=== PATIENT | female | born 1950 | race Caucasian/White ===

== ENCOUNTER 2016-11-19 00:58 | Inpatient (IN) | payer OTHER, MEDICARE ==
[~2016-11-19] VITALS: Ht 162.6 cm; Wt 91.9 kg
[2016-11-19] VITALS (8 sets, daily range): BP systolic 157–200; BP diastolic 44–90
--- NOTE | ~2016-11-19 | CON ---
[place], [place] REPORT OF CONSULTATION NAME: JUAN LUIS [facility] #: [id number] UNIT #: [id number] ROOM: 502 DOCTOR: MAXINE AMEZQUITA MD BIRTHDATE: [birth year] DOS: REASON FOR CONSULTATION: Chest pain. HISTORY OF PRESENT ILLNESS: The patient is a 66-year-old woman who previously followed with the [facility] for heart disease. She stated that she had chest pain in 2011, catheterization led to the placement of 2 stents "in the back of the heart." The patient was on aspirin and Plavix for a while, but after her Plavix was discontinued. 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 She states that for the last several weeks, she has had brief episodes of chest tightness which were reminiscent of what she had when she had her angioplasty in 2012. These have been fairly brief. Last evening while sitting resting and watching television she did develop a dull substernal tightness in her chest, which radiated to her left arm and neck. She stated that it lasted at least an hour or two. She became concerned and called emergency medical services, but by the time they arrived, her symptoms had resolved. She was brought to the Emergency Room where her electrocardiogram showed no acute changes. Serial cardiac biomarkers have been normal. Her blood pressure has been elevated. Since she has been in the hospital, she has had no further symptoms and is anxious to be discharged. PAST MEDICAL HISTORY: Includes, 1. Coronary artery disease, status post catheterization with placement of 2 stents in 2011. This was done at the [facility] and records are not currently available. 2. Essential hypertension. 3. Type 2 diabetes mellitus. 4. Former cigarette abuse. The patient quit over 10 years ago. 5. History of tubal ligation. FAMILY HISTORY: The patient's mother of complications of heart failure at age 72. Her father had a history of heart disease, his first heart attack occurred when he was in his 40s and he at age 68. A sister has heart failure. MEDICATIONS: Prior to admission included aspirin 81 mg daily, carvedilol 12.5 mg twice a day, vitamin D 1000 units daily, clonidine 0.1 mg b.i.d., hydrochlorothiazide 25 mg b.i.d., levothyroxine 75 mcg daily, metformin 1000 mg b.i.d. and PreserVision one tablet b.i.d. In addition, the patient tells me now that she was on lisinopril 20 mg daily at home, but forgot to tell the ER staff about that. ALLERGIES: She has no known drug allergies. REVIEW OF SYSTEMS: The patient denies diplopia or loss of vision. She denies focal weakness. She denies lightheadedness or syncope. She denies orthopnea or PND. She denies fevers, chills, sweats or recent weight change. She denies nausea or vomiting. She did not have any associated nausea, diaphoresis or dyspnea with her symptoms. She denies lightheadedness or syncope. She denies [place], [place] REPORT OF CONSULTATION NAME: [facility] UNIT #: [id number] ROOM: [facility] DOCTOR: MAXINE AMEZQUITA MD BIRTHDATE: [birth year] hemoptysis or hematemesis. She denies any significant cough. She denies change in her bowel or bladder habits and denies blood in her urine or stools. She denies any skin rashes. She denies any swelling in her legs. She denies claudications. She denies heat or cold intolerance and denies polydipsia or polyuria. The remainder of the review of systems is negative except as noted above. SOCIAL HISTORY: The patient is . She was a smoker, but quit over 10 years ago. She does not consume significant amounts of alcohol. PHYSICAL EXAMINATION: GENERAL: The patient is an overweight white female who is awake, alert and oriented. VITAL SIGNS: Pulse is 58 and regular, blood pressure is 187/72. She is afebrile. She weighs 91.9 kg and has a body mass index of 34.8. HEENT: Normocephalic, atraumatic. Extraocular muscles are intact. Sclerae are clear. Pupils are equal, round and react to light. The oral mucosa is moist. Tongue is midline. NECK: Supple. She has no jugular distention. Carotids are full. I heard no bruits. She had no neck or supraclavicular masses and no thyromegaly. LUNGS: Respirations are unlabored. Her chest is clear to auscultation and percussion. She has no presacral edema or chest wall tenderness. HEART: Has a regular rhythm. She has a fourth heart sound, but no third heart sound or murmur. The PMI is not displaced. She has no precordial heave, lift or thrill. ABDOMEN: Soft and normally active without masses, organomegaly or bruits. EXTREMITIES: Showed no edema. Peripheral pulses are palpable in the feet bilaterally. LABORATORY DATA: I reviewed her electrocardiogram and it does show sinus rhythm. It is a normal tracing. Cardiac biomarkers have been normal as well. Hemoglobin is 10.7, hematocrit 33.3. There are 7900 white cells and 266,000 platelets present. Sodium is 137, potassium 3.5, BUN 10, creatinine 0.67. Sugar is 102. Hemoglobin A1c is 6.9. Troponin has been negative x 3. IMPRESSION: 1. Atypical chest pain. The patient shows no signs of an acute myocardial infarction and no objective evidence for an acute coronary syndrome. 2. Hypertension. 3. Type 2 diabetes mellitus. 4. History of coronary artery disease status post 2 stents placed in 2011. 5. Hypothyroidism, on replacement. PLAN: The patient's medical regimen is somewhat unusual. She is not sure what dose of MANDA inhibitor she is on, but it was not listed with her usual medications. Typically, patients do not take hydrochlorothiazide twice a day and I would prefer to emphasize beta blockers and MANDA inhibitors rather than clonidine. I did ask the patient to find out what medications she is on and their dosages so they can be adjusted appropriately. My goal would be to push her to a maximum dose of MANDA inhibitor and stop her clonidine over time. I [place], [place] REPORT OF CONSULTATION NAME: [facility]AN [facility]IS [facility] UNIT #: [id number] ROOM: 502 DOCTOR: MAXINE AMEZQUITA MD BIRTHDATE: [birth year] think that she is already on her maximally tolerated dose of beta chata since her heart rate at rest is fairly slow. I did convince her that she should be back on a statin. She states that she did not tolerate atorvastatin in the past, but she has tolerated pravastatin. I think that in the very near future, the patient should undergo an exercise myocardial perfusion study. The patient would like to have that arranged as an outpatient and probably will speak to her primary physician, Dr. Resendiz to have it arranged at the [facility]. If she stays in the hospital we will arrange for her to have a stress test this coming Monday. Otherwise, she can be discharged from our perspective and we will remain available to see her as needed. I thank the hospitalist physicians for asking our advice regarding the patient's care. MAXINE AMEZQUITA MD CM:CONSTR:REPORT OF CONSULTATION 1458 11/19/16 2309 interface
[~2016-11-19 00:58] MED LIST: ANTIVERT25 MG PO; ASPIR-TRIN325 MG PO; CARVEDILOL12.5 MG PO; CLOPIDOGREL75 MG PO; LIPITOR20 MG PO; LISINOPRIL40 MG PO; METFORMIN500 MG PO; PANTOPRAZOLE SO20 MG PO; VITAMIN D31000 IU PO
[2016-11-19] MEDS ORDERED: CLONIDINE HYDR0.1 MG PO (01:12)
[2016-11-19] MEDS ORDERED: HYDR25T PO (01:12)
[2016-11-19] MEDS ORDERED: CARVEDILOL12.5 MG PO (01:12)
[2016-11-19] MEDS ORDERED: LEVOTHYROXIN0.075 MG PO (01:13)
[2016-11-19] MEDS ORDERED: VITAMIN D31000 I1 PO (01:13)
[2016-11-19] MEDS ORDERED: PRESERVISION A1 EAC1 PO (01:13)
[2016-11-19] MEDS ORDERED: ASPIRIN FOR CHI81 MG PO (01:14)
[2016-11-19] MEDS ORDERED: METFORMIN500 MG PO (01:14)
[2016-11-19 01:22] LABS: BASO % 0.3 % (0.0-1.0); EOS # 0.3 10*3/uL (0.0-0.4); EOS % 3.6 % (1.0-4.0); HEMATOCRIT 34.7 % (37.0-47.0); HEMOGLOBIN 11.3 g/dl (12.0-16.0); LYMPH # 2.7 10*3/uL (1.3-4.4); LYMPH % 29.7 % (27.0-41.0); MEAN CORPUSCULAR HGB 25.7 pg (27.0-31.0); MEAN CORPUSCULAR HGB CONC 32.6 g/dl (33.0-37.0); MEAN PLATELET VOLUME 9.7 fl (9.6-12.3); MONO % 11.4 % (3.0-9.0); NEUT # 4.9 10*3/uL (2.3-7.9); NEUT % 54.7 % (47.0-73.0); PLATELET COUNT AUTOMATED 294 10*3/uL (130-400); RED BLOOD COUNT 4.39 10*6/uL (4.10-5.10); RED CELL DISTRI WIDTH 15.7 % (0-14.5)
[2016-11-19 01:32] LABS: INTERNATIONAL NORM RATIO 0.9 (2.0-3.5)
[2016-11-19 01:39] LABS: ALBUMIN 3.4 gm/dl (3.1-4.5); ALKALINE PHOSPHATASE 48 U/L (45-117); BILIRUBIN, TOTAL 0.3 mg/dl (0.2-1.0); BUN 11 mg/dl (7-24); CARBON DIOXIDE 26 mmol/L (21-32); CHLORIDE 98 mmol/L (98-107); EST GLOM FILT AFRICAN AMERICAN > 60 ml/min; GLUCOSE 133 mg/dL (65-99); MAGNESIUM 1.3 mg/dL (1.5-2.1); POTASSIUM 3.3 mmol/L (3.5-5.1); SGOT/AST 12 IU/L (3-35); SGPT/ALT 19 U/L (12-78); SODIUM 138 mmol/L (136-145); TOTAL PROTEIN 6.9 gm/dL (6.4-8.2)
[2016-11-19 01:41] LABS: TROPONIN I < 0.015 ng/ml (<0.045)
[2016-11-19 07:18] LABS: BASO % 0.5 % (0.0-1.0); EOS # 0.3 10*3/uL (0.0-0.4); EOS % 3.5 % (1.0-4.0); HEMATOCRIT 33.3 % (37.0-47.0); HEMOGLOBIN 10.7 g/dl (12.0-16.0); LYMPH # 2.3 10*3/uL (1.3-4.4); LYMPH % 29.7 % (27.0-41.0); MEAN CELL VOLUME 78.7 fl (81.0-99.0); MEAN CORPUSCULAR HGB 25.3 pg (27.0-31.0); MEAN CORPUSCULAR HGB CONC 32.1 g/dl (33.0-37.0); MEAN PLATELET VOLUME 9.8 fl (9.6-12.3); MONO # 0.9 10*3/uL (0.1-1.0); NEUT # 4.3 10*3/uL (2.3-7.9); NEUT % 54.9 % (47.0-73.0); PLATELET COUNT AUTOMATED 266 10*3/uL (130-400); RED BLOOD COUNT 4.23 10*6/uL (4.10-5.10); RED CELL DISTRI WIDTH 15.7 % (0-14.5); WHITE BLOOD COUNT 7.9 10*3/uL (4.8-10.8)
[2016-11-19 07:27] LABS: CKMB 1.3 ng/ml (0.5-3.6)
[2016-11-19 07:42] LABS: ALBUMIN 3.2 gm/dl (3.1-4.5); BUN 10 mg/dl (7-24); CARBON DIOXIDE 30 mmol/L (21-32); CHLORIDE 98 mmol/L (98-107); CHOLESTEROL 147 mg/dL (<200); EST GLOM FILT AFRICAN AMERICAN > 60 ml/min; GLUCOSE 102 mg/dL (65-99); MAGNESIUM 1.4 mg/dL (1.5-2.1); PHOSPHOROUS 3.5 mg/dL (2.5-4.9); POTASSIUM 3.5 mmol/L (3.5-5.1); SGOT/AST 12 IU/L (3-35); SGPT/ALT 19 U/L (12-78); SODIUM 137 mmol/L (136-145); TRIGLYCERIDES 67 mg/dl (<150); VLDL CHOLESTEROL 13 mg/dL (6-40)
[2016-11-19 07:45] LABS: HEMOGLOBIN A1c 6.9 % (4.8-5.6)
[2016-11-19 07:49] LABS: ALKALINE PHOSPHATASE 43 U/L (45-117); BILIRUBIN, TOTAL 0.4 mg/dl (0.2-1.0); HDL CHOLESTEROL 34 mg/dl (40-60); LDL CHOLESTEROL 100 mg/dL (9-159); TOTAL PROTEIN 6.4 gm/dL (6.4-8.2)
[2016-11-19 08:42] LABS: VITAMIN D, 25-HYDROXY 49.3 ng/mL (30-100)
[2016-11-19 08:43] LABS: FOLIC ACID 9.92 ng/mL (>5.38)
[2016-11-19] MEDS ORDERED: LISINOPRIL40 MG PO (15:28)
[2016-11-19] MEDS ORDERED: LISINOPRIL20 MG PO (15:33)
[2016-11-19] MEDS ORDERED: B-12500 MC1 PO (15:39)
== END 2016-11-19 17:09 | disposition home or self-care (01) | DRG 206 ==
LOC: ED 00:58 → 5E 02:46
PROVIDERS: Emergency Medicine; Hospitalist
DX: M94.0 Chondrocostal junction syndrome [Tietze] (principal); E11.65 Type 2 diabetes mellitus with hyperglycemia; I10 Essential (primary) hypertension; E03.9 Hypothyroidism, unspecified; E55.9 Vitamin D deficiency, unspecified; D64.9 Anemia, unspecified; E87.6 Hypokalemia; I25.10 Atherosclerotic heart disease of native coronary artery without angina pectoris; Z98.51 Tubal ligation status; Z95.5 Presence of coronary angioplasty implant and graft; Z82.49 Family history of ischemic heart disease and other diseases of the circulatory system; Z79.82 Long term (current) use of aspirin; Z79.899 Other long term (current) drug therapy; Z79.84 Long term (current) use of oral hypoglycemic drugs

== ENCOUNTER 2017-10-22 15:43 | Emergency (ER) | payer MEDICARE, OTHER ==
[~2017-10-22] VITALS: Wt 90.7 kg
[~2017-10-22 15:43] MED LIST changes: +ASPIRIN FOR CHI81 MG PO; +B-12500 MC1 PO; +CLONIDINE HYDR0.1 MG PO; +HYDR25T PO; +LEVOTHYROXIN0.075 MG PO; +LISINOPRIL20 MG PO; +PRESERVISION A1 EAC1 PO; +VITAMIN D31000 I1 PO
[2017-10-22] MEDS ORDERED: NAPROSYN500 MG PO (18:21)
[2017-10-22] MEDS ORDERED: NORCO 5-325 TA1 EACH PO (18:21)
== END 2017-10-22 18:55 | disposition home or self-care (01) ==
LOC: ED 15:43
DX: M25.552 Pain in left hip (principal); Z79.899 Other long term (current) drug therapy; Z79.82 Long term (current) use of aspirin; Z79.84 Long term (current) use of oral hypoglycemic drugs; Z98.51 Tubal ligation status

== ENCOUNTER → 2019-01-09 | Day surgery (SDC) | payer MEDICARE, OTHER ==
[~2019-01-09] VITALS: Ht 162.5 cm; Wt 90.7 kg
[~2019-01-09] MED LIST changes: +ALDACTONE25 M1 PO; +NAPROSYN500 MG PO; +NORCO 5-325 TA1 EACH PO
--- NOTE | ~2019-01-09 | O ---
[place], [place] OPERATIVE NOTE NAME: JUAN LUIS [facility] #: [id number] UNIT #: [id number] ROOM: DOCTOR: MICHELLE CARVER MD BIRTHDATE: [birth year] DOS: 01/09/2019 PREOPERATIVE DIAGNOSIS: Cataract, left eye. POSTOPERATIVE DIAGNOSIS: Cataract, left eye. OPERATION: Extracapsular cataract extraction by phacoemulsification with posterior chamber intraocular lens implantation, left eye. ANESTHESIA: Monitored standby. OPERATIVE FINDINGS AND PROCEDURE: 2% Xylocaine topical anesthetic gel was applied to the eye in the preop area. The patient was taken to the operating room and prepped and draped in the standard fashion for sterile intraocular surgery. A time out procedure was performed verifying correct patient, correct site and corrects lens with Rachel Carver M.D. The operating microscope was swung into position and the lid speculum was inserted. Using a Khloe paracentesis blade, a paracentesis was made through clear cornea. Shugarcaine was injected into the anterior chamber. Viscoelastic was used to fill the anterior chamber. Using a metal keratome a 2.4 mm self-sealing clear corneal cataract incision was made temporally at the limbus. Using a pre-bent 25 gauge cystotome needle, a standard continuous curvilinear capsulorrhexis was performed. The anterior capsule was removed with forceps. The lens nucleus was hydrodissected and phacoemulsified in the posterior chamber. Cortical material was removed with the irrigation aspiration hand piece and the posterior capsule was then polished with a curet under irrigation. The posterior chamber and capsular bag were filled with viscoelastic. A posterior chamber intraocular lens manufactured by: [employer], Model #[id number], and 21.5 diopters in strength were then inserted into the posterior chamber and within the capsular bag using the lens cartridge and injector system. Viscoelastic was removed using the irrigation aspiration handpiece. The anterior chamber was filled with balanced salt solution through the paracentesis. Both the paracentesis site and cataract incisions were hydrated with BSS and verified to be water-tight and self-sealing. Cefuroxime 1 mg/0.1 mL was injected into the anterior chamber through the paracentesis site. The incision checked to be water-tight using a Weck-Alicja sponge. The integrity of the cataract wound and ocular tension were checked. Lid speculum and drapes were removed. The patient was transferred from the operating room to the recovery room in satisfactory condition. [place], [place] OPERATIVE NOTE NAME: PARISH[facility] LU[facility] UNIT #: [id number] ROOM: DOCTOR: MICHELLE CARVER MD BIRTHDATE: [birth year] MICHELLE CARVER MD CM:OPRECORD:OPERATIVE NOTE [id number] MICHELLE CRAVER MD 01/09/19 1419 interface
[2019-01-09 07:00] VITALS: BP 119/52
[2019-01-09 08:46] VITALS: BP 114/66
[2019-01-09 09:00] VITALS: BP 129/57
[2019-01-09 09:15] VITALS: BP 124/66
== END | disposition home or self-care (01) ==
LOC: SDC 01-03 08:45
DX: H25.812 Combined forms of age-related cataract, left eye (principal); I25.10 Atherosclerotic heart disease of native coronary artery without angina pectoris; I10 Essential (primary) hypertension; E11.9 Type 2 diabetes mellitus without complications; K21.9 Gastro-esophageal reflux disease without esophagitis; Z98.51 Tubal ligation status; Z98.890 Other specified postprocedural states; Z95.5 Presence of coronary angioplasty implant and graft; Z79.899 Other long term (current) drug therapy; Z82.49 Family history of ischemic heart disease and other diseases of the circulatory system

== ENCOUNTER → 2019-02-06 | Day surgery (SDC) | payer MEDICARE, OTHER ==
[~2019-02-06] VITALS: Ht 162.5 cm; Wt 90.7 kg
--- NOTE | ~2019-02-06 | O ---
[place], [place] OPERATIVE NOTE NAME: [facility]UAN LUIS [facility] #: [id number] UNIT #: [id number] ROOM: DOCTOR: MICHELLE CARVER MD BIRTHDATE: [birth year] DOS: 02/06/2019 PREOPERATIVE DIAGNOSIS: Cataract, right eye. POSTOPERATIVE DIAGNOSIS: Cataract, right eye. OPERATION: Extracapsular cataract extraction by phacoemulsification with posterior chamber intraocular lens implantation, right eye. ANESTHESIA: Monitored standby. LENS INFORMATION: Intraocular lens, Guido [id number], 22.0 diopters. OPERATIVE FINDINGS AND PROCEDURE: 2% Xylocaine topical anesthetic gel was applied to the eye in the preop area. The patient was taken to the operating room and prepped and draped in the standard fashion for sterile intraocular surgery. A time out procedure was performed verifying correct patient, correct site and corrects lens with Rachel Carver M.D. The operating microscope was swung into position and the lid speculum was inserted. Using a Khloe paracentesis blade, a paracentesis was made through clear cornea. Viscoelastic was used to fill the anterior chamber. Using a metal keratome a 2.4 mm self-sealing clear corneal cataract incision was made temporally at the limbus. Using a pre-bent 25 gauge cystotome needle, a standard continuous curvilinear capsulorrhexis was performed. The anterior capsule was removed with forceps. The lens nucleus was hydrodissected and phacoemulsified in the posterior chamber. Cortical material was removed with the irrigation aspiration hand piece and the posterior capsule was then polished with a curet under irrigation. The posterior chamber and capsular bag were filled with viscoelastic. A posterior chamber intraocular lens manufactured by: [employer]ido, AU00T0, 22.0 diopters in strength were then inserted into the posterior chamber and within the capsular bag using the lens cartridge and injector system. Viscoelastic was removed using the irrigation aspiration handpiece. The anterior chamber was filled with balanced salt solution through the paracentesis. Both the paracentesis site and cataract incisions were hydrated with BSS and verified to be water-tight and self-sealing. Cefuroxime 1 mg/0.1 mL was injected into the anterior chamber through the paracentesis site. The incision checked to be water-tight using a Weck-Alicja sponge. The integrity of the cataract wound and ocular tension were checked. Lid speculum and drapes were removed. The patient was transferred from the operating room to the recovery room in satisfactory condition. [place], [place] OPERATIVE NOTE NAME: JEMJUAN LUIS [facility] UNIT #: [id number] ROOM: DOCTOR: MICHELLE CARVER MD BIRTHDATE: [birth year] MICHELLE CARVER MD CM:OPRECORD:OPERATIVE NOTE [id number] MICHELLE CARVER MD 02/06/19 1030 interface
[2019-02-06 07:23] VITALS: BP 140/51
[2019-02-06 08:01] VITALS: BP 151/62
[2019-02-06 08:15] VITALS: BP 145/58
[2019-02-06 08:27] VITALS: BP 153/60
== END | disposition home or self-care (01) ==
LOC: SDC 01-31 08:45
DX: H25.811 Combined forms of age-related cataract, right eye (principal); I25.10 Atherosclerotic heart disease of native coronary artery without angina pectoris; I10 Essential (primary) hypertension; E11.9 Type 2 diabetes mellitus without complications; K21.9 Gastro-esophageal reflux disease without esophagitis; Z98.890 Other specified postprocedural states; Z79.899 Other long term (current) drug therapy; Z82.49 Family history of ischemic heart disease and other diseases of the circulatory system